=== PATIENT | female | born 1995 | race Caucasian/White ===

== ENCOUNTER 2022-12-17 12:04 | Outpatient (CLI) | payer BC, SELFPAY ==
--- NOTE | 2022-12-17 12:15 | CRLHL7_ITS ---
For Patients: As a result of the Century Cures Act, medical imaging exams and procedure reports are released immediately into your electronic medical record. You may view this report before your referring provider. If you have questions, please contact your health care provider. INDICATION: First trimester scan, establish dates. COMPARISON: None. TECHNIQUE: Real-time campos-scale imaging of the pelvis was performed. FINDINGS: Sonographic imaging demonstrates a single living intrauterine gestation. The embryo demonstrates a regular cardiac rate measuring 166 beats per minute. The embryo`s crown-rump length measurement of 1.7 cm corresponds to a gestational age of 8 weeks 1 day with a sonographic due date of 07/28/2023. There is a normal-appearing yolk sac. Possible 3 millimeter umbilical cord cyst. The gestational sac has a normal appearance. Tiny subchorionic hemorrhage inferiorly measuring 5 x 2 x 8 millimeters. The amount of fluid within the sac appears appropriate for gestational age. The cervix is closed. The myometrium appears normal. Corpus luteal cyst left ovary. Right ovary not visualized. There are no suspicious fluid collections noted in the cul-de-sac. IMPRESSION: Single living intrauterine with sonographic gestational age 8 weeks 1 day and sonographic due date 07/28/2023. Tiny subchorionic hemorrhage inferiorly measuring 5 x 2 x 8 millimeters. Possible 3 millimeter umbilical cord cyst. Short-term follow-up in 2 weeks suggested. Dictated by Ugo Love MD @ 12/17/2022 1:11:17 PM (Electronically Signed)
== END 2022-12-17 12:05 | disposition home or self-care (01) ==
LOC: US 12:06
PROVIDERS: Visit Provider Registered Nurse
DX: Z34.91 Encounter for supervision of normal pregnancy, unspecified, first trimester (principal); Z3A.08 8 weeks gestation of pregnancy
CPT/HCPCS: 76817; 82565; 82570; 84156; 84450; 84460; 84520; 84550; 86592; 86703; 86762; 86787; 86803; 86850; 86900; 86901; 87086; 87340; 87491; 87591

== ENCOUNTER 2022-12-17 13:07 | Outpatient (CLI) | payer BC, SELFPAY ==
[2022-12-17 14:59] LABS: Creatinine* 0.5 mg/dL (0.5-1.5); Estimated Glomerular Filt Rate 133 ml/min
[2022-12-17 15:00] LABS: Alanine Aminotransferase* 16 U/L (4-35); Aspartate Amino Transferase* 16 U/L (12-35); Blood Urea Nitrogen* 10 mg/dL (5-24); Uric Acid* 5.4 mg/dL (2.2-8.4)
[2022-12-17 15:17] LABS: Total Protein Urine < 5 mg/dL
[2022-12-17 15:18] LABS: Creatinine Urine 163.8 mg/dL
[2022-12-17 15:32] LABS: Hepatitis B Surface Antigen* Negative (Negative)
[2022-12-17 15:42] LABS: HIV 1/2/P24 Combo Screen* Negative (Negative)
[2022-12-17 15:50] LABS: Hepatitis C Virus Antibody* Negative (Negative)
[2022-12-17 18:25] LABS: Chlamydia DNA Amplified* NOT DETECTED (No Detected); GC DNA Amplified* NOT DETECTED (No Detected)
[2022-12-20 00:23] LABS: Rubella Antibody IgG 72.2 IU/mL
[2022-12-20 01:38] LABS: Varicella-Zoster Virus Ab, IgG 134.6 IV
[2022-12-20 03:52] LABS: Rapid Plasma Reagin (RPR) Non Reactive (Non Reactive)
== END 2022-12-17 13:08 | disposition home or self-care (01) ==
PROVIDERS: Visit Provider Registered Nurse
DX: Z34.91 Encounter for supervision of normal pregnancy, unspecified, first trimester (principal)
CPT/HCPCS: 82565; 82570; 84156; 84450; 84460; 84520; 84550; 86592; 86703; 86762; 86787; 86803; 86850; 86900; 86901; 87086; 87340; 87491; 87591

== ENCOUNTER 2022-12-31 13:44 | Outpatient (CLI) | payer BC, SELFPAY ==
--- NOTE | 2022-12-31 14:00 | CRLHL7_ITS ---
For Patients: As a result of the Century Cures Act, medical imaging exams and procedure reports are released immediately into your electronic medical record. You may view this report before your referring provider. If you have questions, please contact your health care provider. INDICATION: Followup in umbilical cord cyst. COMPARISON: December 17, 2022. TECHNIQUE: Real-time campos-scale imaging of the pelvis was performed. FINDINGS: Sonographic imaging demonstrates a single living intrauterine gestation. The embryo demonstrates a regular cardiac rate measuring between 188 and 190 beats per minute. The embryo`s crown-rump length measurement of 3.3 cm corresponds to a gestational age of 10 weeks 1 day with a sonographic due date of July 28, 2023. There is a normal-appearing yolk sac. There are no gross abnormalities noted within the embryo at this early state of development. The placenta has not yet developed. The gestational sac has a normal appearance and there is no evidence of a perigestational hemorrhage. The amount of fluid within the sac appears appropriate for gestational age. The cervix is closed. The myometrium appears normal. The ovaries are of normal size. The right ovary measures 3.8 x 2.5 x 2.5 cm and contains a small corpus luteum cyst of . The left ovary measures 4.0 x 1.2 x 2.7 cm. There are no suspicious fluid collections noted in the cul-de-sac. A previously suggested umbilical cord cyst has resolved. IMPRESSION: 1. Resolution of a previously suggested umbilical cord cyst. 2. Elevated heart rate of between 188 and 190 beats per minute. 3. The crown-rump length corresponds to a 10 week 1 day gestation. Dictated by Keenan Nicole MD @ 12/31/2022 3:53:14 PM (Electronically Signed)
== END 2022-12-31 13:45 | disposition home or self-care (01) ==
LOC: US 13:46
PROVIDERS: Visit Provider Registered Nurse
DX: Z34.91 Encounter for supervision of normal pregnancy, unspecified, first trimester (principal); Z3A.10 10 weeks gestation of pregnancy
CPT/HCPCS: 76816

== ENCOUNTER 2023-02-06 11:35 | Outpatient (CLI) | payer BC, SELFPAY ==
[2023-02-06 16:24] LABS: Strep A DNA Probe* NOT DETECTED (Not Detectd)
[2023-02-06 16:36] LABS: SARS PCR* Negative SARS-CoV-2 (Negative)
== END 2023-02-06 11:36 | disposition home or self-care (01) ==
PROVIDERS: Visit Provider Nurse Practitioner Family
DX: J06.9 Acute upper respiratory infection, unspecified (principal); J02.9 Acute pharyngitis, unspecified
CPT/HCPCS: 87635; 87651

== ENCOUNTER 2023-05-06 12:31 | Outpatient (CLI) | payer BC, SELFPAY | END 2023-05-06 12:32 | disposition home or self-care (01) | LOC: NFLDREF 05-08 05:12 | PROVIDERS: Visit Provider Obstetrics & Gynecology | DX: Z34.93 Encounter for supervision of normal pregnancy, unspecified, third trimester (principal); Z3A.28 28 weeks gestation of pregnancy | CPT/HCPCS: 86592 ==

== ENCOUNTER 2023-06-02 12:55 | Outpatient (CLI) | payer BC, SELFPAY ==
--- NOTE | 2023-06-02 13:00 | CRLHL7_ITS ---
For Patients: As a result of the Century Cures Act, medical imaging exams and procedure reports are released immediately into your electronic medical record. You may view this report before your referring provider. If you have questions, please contact your health care provider. INDICATION: BMI TECHNIQUE: Real time campos scale imaging of the fetus was performed. COMPARISON: 03/11/2023 FINDINGS: Sonographic imaging demonstrates a single living intrauterine gestation. Fetus demonstrates a regular cardiac rate of 150 beats per minute. Fetus has a vertex position. The placenta lies anteriorly. Amniotic fluid volume appears normal and there is a single deepest pocket of 5.8 cm. The estimated weight is 2337gm which lies at the 94th %. On the prior OB ultrasound dated 03/11/2023 the estimated weight was at the 92nd percentile. BPD 90th percentile. HC 85th percentile. AC 96th percentile. FL 75th percentile. The fetus was active and demonstrated normal breathing movements. There was normal flexion and extension of the trunk and extremities. IMPRESSION: Normal biophysical profile score 8/8. Sonographic gestational age 34 weeks 1 day and sonographic due date 07/13/2023. Sonographic age 15 days ahead of the clinical age. Estimated weight 94th percentile. Abdominal circumference 96th percentile. Dictated by Ugo Love MD @ 06/02/2023 3:05:19 PM (Electronically Signed)
== END 2023-06-02 12:56 | disposition home or self-care (01) ==
LOC: US 12:56
PROVIDERS: Visit Provider Obstetrics & Gynecology
DX: O36.63X0 Maternal care for excessive fetal growth, third trimester, not applicable or unspecified (principal); Z3A.34 34 weeks gestation of pregnancy
CPT/HCPCS: 76816; 76819

== ENCOUNTER 2023-06-05 13:55 | Outpatient (CLI) | payer BC, SELFPAY ==
--- NOTE | 2023-06-05 14:00 | CRLHL7_ITS ---
For Patients: As a result of the Century Cures Act, medical imaging exams and procedure reports are released immediately into your electronic medical record. You may view this report before your referring provider. If you have questions, please contact your health care provider. INDICATION: OBESITY COMPLICATING COMPARISON: 06/02/2023 TECHNIQUE: Real time campos scale imaging of the fetus was performed. Without non-stress testing. FINDINGS: Sonographic imaging demonstrates a single living intrauterine gestation. Fetus demonstrates a regular cardiac rate of 163 beats per minute. Fetus has a vertex position. The amniotic fluid volume appears normal and there is a single deepest pocket measurement of 5.2 cm. The fetus was active and demonstrated normal breathing movements. There was normal flexion and extension of the trunk and extremities. IMPRESSION: Normal biophysical profile score of 8 out of 8. Dictated by Ugo Love MD @ 06/08/2023 9:00:17 AM (Electronically Signed)
== END 2023-06-05 13:56 | disposition home or self-care (01) ==
LOC: US 13:56
PROVIDERS: Visit Provider Obstetrics & Gynecology
DX: O99.210 Obesity complicating pregnancy, unspecified trimester (principal)
CPT/HCPCS: 76819

== ENCOUNTER 2023-06-16 13:06 | Outpatient (CLI) | payer BC, SELFPAY ==
--- NOTE | 2023-06-16 13:00 | CRLHL7_ITS ---
For Patients: As a result of the Century Cures Act, medical imaging exams and procedure reports are released immediately into your electronic medical record. You may view this report before your referring provider. If you have questions, please contact your health care provider. INDICATION: Obesity COMPARISON: 06/05/2023 TECHNIQUE: Real time campos scale imaging of the fetus was performed. Without non-stress testing. FINDINGS: Sonographic imaging demonstrates a single living intrauterine gestation. Fetus demonstrates a regular cardiac rate of 150 beats per minute. Fetus has a vertex position. The amniotic fluid volume appears lower limits of normal and there is a single deepest pocket measurement of 2.6 cm. MIGUEL 8.3 cm. The fetus was active. Absent breathing movements. There was normal flexion and extension of the trunk and extremities. IMPRESSION: Biophysical profile 04/09. Lower limits of normal amniotic fluid with MIGUEL 8.3 cm. Dictated by Ugo Love MD @ 06/17/2023 11:23:20 AM (Electronically Signed)
== END 2023-06-16 13:07 | disposition home or self-care (01) ==
LOC: US 13:07
PROVIDERS: Visit Provider Obstetrics & Gynecology
DX: Z34.93 Encounter for supervision of normal pregnancy, unspecified, third trimester (principal); Z3A.34 34 weeks gestation of pregnancy
CPT/HCPCS: 76819

== ENCOUNTER 2023-06-19 11:43 | Emergency (ER) | payer BC, SELFPAY ==
[2023-06-19 11:53] VITALS: BP 129/86; PULSE 78; RESP 20; TEMP 36.1; O2SAT 98; BMI 50.4
--- NOTE | 2023-06-19 12:25 | CRLHL7_ITS ---
For Patients: As a result of the Century Cures Act, medical imaging exams and procedure reports are released immediately into your electronic medical record. You may view this report before your referring provider. If you have questions, please contact your health care provider. INDICATION: FOOT SWELLING. . TECHNIQUE: Ultrasound venous duplex lower left extremity. Compression venous exam was performed using campos-scale, color Doppler, and spectral Doppler analysis. COMPARISON: None. FINDINGS: Deep veins: Sonographic imaging demonstrates the left common femoral, deep femoral, superficial femoral, popliteal, posterior tibial and the contralateral right common femoral veins to be fully compressible with normal color Doppler blood flow. Superficial veins: Greater saphenous vein is fully compressible. No popliteal cyst. IMPRESSION: Normal left lower extremity venous ultrasound, no sign of deep venous thrombosis. Dictated by Viktor Juan MD @ 06/19/2023 2:25:19 PM (Electronically Signed)
--- NOTE | 2023-06-19 12:26 | ED_ITS ---
HPI - General Adult General Chief complaint: Lower Extremity Swelling Stated complaint: Feet swelling, suspected blood clot Time Seen by Provider: 06/19/23 12:03 History of Present Illness HPI narrative: This 27-year-old female is in her last trimester at around 34 weeks and comes in reporting bilateral swelling in her feet and hands, left foot greater than the right foot. She does not report any shortness of breath and does not have any leg pain. She does not have a prior history of clots. She does report a mild headache but states that she typically gets headaches. She arrives with normal blood pressure. Related Data Home Medications Medication Instructions Recorded Confirmed prenat.vits,kaleigh,rmm-yyyl-cexze 1 tab PO QDAY 12/17/22 06/16/23 aspirin 81 mg tablet,delayed 81 mg PO QDAY 02/06/23 06/16/23 release magnesium oxide 500 mg capsule 500 mg PO QDAY 02/06/23 06/16/23 cetirizine 10 mg tablet (Zyrtec) 10 mg PO QDAY PRN 02/11/23 06/16/23 Previous Rx's Medication Instructions Recorded sumatriptan succinate 50 mg tablet See Rx Instructions PO .COMPLEX 09/17/22 #10 tabs Allergies Allergy/AdvReac Type Severity Reaction Status Date / Time No Known Drug Allergies Allergy Verified 06/19/23 11:56 Review of Systems Status of ROS: Reports: 10 or more systems reviewed and unremarkable except as noted in History and below Narrative: Constitutional: No fevers. Eyes: No discharge. No vision changes. HENT: No congestion, no sore throat, no ear pain. Cardiovascular: No chest pain, no palpitations. Respiratory: No shortness of breath, no wheezes, no cough. Gastrointestinal: No abdominal pain, no vomiting, no diarrhea. Genitourinary: No dysuria, no hematuria. Musculoskeletal: Normal range of motion. Skin: No rashes, no pruritis. Neurological: No dizziness, weakness, sensory change, speech change. Endo/Heme/Allergies: No bruising or bleeding. No polydipsia. Pysch: no suicidality, no anxiety, no insomnia. All other systems reviewed and are negative. [facility] Medical History (Updated 06/19/23 @ 13:33 by Aaron Mckeon MD) Preeclampsia ?O14.90 - Unspecified pre-eclampsia, unspecified trimester (ICD-10) Asthma ?J45.909 - Unspecified asthma, uncomplicated (ICD-10) Acute recurrent tonsillitis ?J03.91 - Acute recurrent tonsillitis, unspecified (ICD-10) Surgical History (Updated 12/17/22 @ 21:54 by Ann-Marie Doe CNP) Status post primary low transverse section (05/07/21) ?Z98.891 - History of uterine scar from previous surgery (ICD-10) Social History Smoking Status: Former smoker How often do you have a drink containing alcohol: never How often do you have six or more drinks on one occasion: Never AUDIT-C Alcohol total score: 0 Non-prescribed substance use: denies use Little interest or pleasure in doing things: several days Feeling down, depressed, or hopeless: not at all Exam Narrative: Exam Narrative: Constitutional: Well-developed, well-nourished, no acute distress. HEENT: Normocephalic, atraumatic. Neck: Normal range of motion. Nontender. Supple. Heart: Regular. No murmurs. Normal rate. Intact distal pulses. Lungs: Clear to auscultation. No chest discomfort. No wheezes, rhonchi, or rales. Abdomen: Normal bowel sounds. Nontender. No rebound tenderness. Gravid. Genitalia: Deferred. Back: No midline tenderness. Normal range of motion. Extremities: Normal range of motion. No injury. No pitting pedal edema. No tenderness when squeezing on the calf or thigh musculature. Skin: Intact. No rash. Warm. No erythema or pallor. Neurologic: No altered sensation. No weakness. Alert and oriented. Psychiatric: No suicidality. No anxiety or depression. No insomnia. Nursing notes and vitals signs are reviewed. Const: Vital Signs, click to edit/add: Vital Signs - 24 hr 06/19/23 11:53 Temperature 97.0 F L Pulse Rate [Right Pulse Oximeter] 78 Respiratory Rate 20 Blood Pressure [Ri ght Upper Arm] 129/86 Pulse Oximetry 98 Oxygen Delivery Me thod Room Air Course Vital Signs Vital signs: Initial Vital Signs Temperature 97.0 F L 06/19/23 11:53 Temperature Source Temporal Artery Scan 06/19/23 11:53 Pulse Rate 78 06/19/23 11:53 Pulse Rhythm Regular 06/19/23 11:53 Pulse Strength 3+ Normal 06/19/23 11:53 Respiratory Rate 20 06/19/23 11:53 Blood Pressure 129/86 06/19/23 11:53 Blood Pressure Mean 100 06/19/23 11:53 Blood Pressure Position Sitting 06/19/23 11:53 Pulse Oximetry 98 06/19/23 11:53 Oxygen Delivery Method Room Air 06/19/23 11:53 Vital Signs Temperature 97.0 F L 06/19/23 11:53 Pulse Rate 78 06/19/23 11:53 Respiratory Rate 20 06/19/23 11:53 Blood Pressure 129/86 06/19/23 11:53 Pulse Oximetry 98 06/19/23 11:53 Oxygen Delivery Method Room Air 06/19/23 11:53 Temperature 97.0 F L 06/19/23 11:53 Pulse Rate 78 06/19/23 11:53 Respiratory Rate 20 06/19/23 11:53 Blood Pressure 129/86 06/19/23 11:53 Pulse Oximetry 98 06/19/23 11:53 Oxygen Delivery Method Room Air 06/19/23 11:53 Medical Decision Making MDM Narrative Medical decision making narrative: This patient comes in with concern that she might have a blood clot in her left lower extremity. She is in her 3rd trimester and states that she had some extra fluid in her feet recently. An ultrasound of the left lower extremity is completed and shows no evidence of deep venous thrombosis. heart tones are also measured and 147-149 beats per minute. These results are reassuring to the patient who is okay to be discharged home to continue current plans. Discharge Plan Discharge Clinical Impression: Feared condition not demonstrated, Patient Disposition: Home, Self-Care Condition: Stable Additional Instructions: Continue current plans. Follow up with MD or return if worsening. Prescriptions: No Action cetirizine [Zyrtec] 10 mg tablet 10 mg PO QDAY PRN aspirin 81 mg tablet,delayed release (DR/EC) 81 mg PO QDAY magnesium oxide 500 mg capsule 500 mg PO QDAY sumatriptan succinate 50 mg tablet See Rx Instructions PO .COMPLEX Qty: 10 12RF Rx Instructions: take 1 tab at onset of headache; if no relief may repeat 1 tab after at least 2 hrs; max = 4 tabs/24 hr PO prenat.vits,kaleigh,deo-ajlb-amiqm Tablet 1 tab PO QDAY Follow Up/Referrals: Provider,Not a Local [Primary Care Provider] - Stand Alone Forms: [employer] Info Instructions
[2023-06-19 13:46] VITALS: BP 121/65; PULSE 77; TEMP 36.2
== END 2023-06-19 13:47 | disposition home or self-care (01) ==
PROVIDERS: Emergency Provider Emergency Medicine Emergency Medical Services
DX: Z71.1 Person with feared health complaint in whom no diagnosis is made (principal); Z33.1 Pregnant state, incidental
CPT/HCPCS: 93971; 99283; 99284

== ENCOUNTER 2023-06-23 12:46 | Outpatient (CLI) | payer BC, SELFPAY ==
--- NOTE | 2023-06-23 13:00 | CRLHL7_ITS ---
For Patients: As a result of the Cures Act, medical imaging exams and procedure reports are released immediately into your electronic medical record. You may view this report before your referring provider. If you have questions, please contact your health care provider. INDICATION: BMI. COMPARISON: June 16, 2023. TECHNIQUE: Real time campos scale imaging of the fetus was performed without non-stress testing. FINDINGS: Sonographic imaging demonstrates a single living intrauterine gestation. Fetus demonstrates a regular cardiac rate of 125 beats per minute. Fetus has a vertex orientation. The amniotic fluid volume appears normal and there is a single deepest pocket measurement of 6.1 cm. The fetus was active and demonstrated normal breathing movements. There was normal flexion and extension of the trunk and extremities. IMPRESSION: Normal biophysical profile score of 8 out of 8. Dictated by Keenan Nicole MD @ 06/24/2023 9:28:50 PM (Electronically Signed)
== END 2023-06-23 12:47 | disposition home or self-care (01) ==
LOC: US 12:47
PROVIDERS: Visit Provider Obstetrics & Gynecology
DX: Z34.93 Encounter for supervision of normal pregnancy, unspecified, third trimester (principal); Z3A.35 35 weeks gestation of pregnancy
CPT/HCPCS: 76819

== ENCOUNTER 2023-07-01 09:05 | Outpatient (CLI) | payer BC, SELFPAY ==
--- NOTE | 2023-07-01 09:15 | CRLHL7_ITS ---
For Patients: As a result of the Century Cures Act, medical imaging exams and procedure reports are released immediately into your electronic medical record. You may view this report before your referring provider. If you have questions, please contact your health care provider. INDICATION: OBESITY COMPARISON: none TECHNIQUE: Real time campos scale imaging of the fetus was performed. Without non-stress testing. FINDINGS: Sonographic imaging demonstrates a single living intrauterine gestation. Fetus demonstrates a regular cardiac rate of 122 beats per minute. Fetus has a vertex position. The amniotic fluid volume appears lower limits of normal and there is a single deepest pocket measurement of 3.2 cm. MIGUEL 9.5 cm. The fetus was active and demonstrated normal breathing movements. There was normal flexion and extension of the trunk and extremities. IMPRESSION: Normal biophysical profile score of 8 out of 8. Amniotic fluid lower limits of normal with MIGUEL 9.5 cm. Dictated by Ugo Love MD @ 07/01/2023 10:56:43 AM (Electronically Signed)
== END 2023-07-01 09:06 | disposition home or self-care (01) ==
LOC: US 09:06
PROVIDERS: Visit Provider Obstetrics & Gynecology
DX: O99.210 Obesity complicating pregnancy, unspecified trimester (principal); Z68.43 Body mass index [BMI] 50.0-59.9, adult
CPT/HCPCS: 76819; 87081; 87653

== ENCOUNTER 2023-07-07 13:49 | Outpatient (CLI) | payer BC, SELFPAY ==
--- NOTE | 2023-07-07 14:00 | CRLHL7_ITS ---
For Patients: As a result of the Century Cures Act, medical imaging exams and procedure reports are released immediately into your electronic medical record. You may view this report before your referring provider. If you have questions, please contact your health care provider. INDICATION: OBESITY COMPARISON: 07/01/2023 TECHNIQUE: Real time campos scale imaging of the fetus was performed. Without non-stress testing. FINDINGS: Sonographic imaging demonstrates a single living intrauterine gestation. Fetus demonstrates a regular cardiac rate of 146 beats per minute. Fetus has a vertex position. The amniotic fluid volume appears normal and there is a single deepest pocket measurement of 5.5 cm. The fetus was active and demonstrated normal breathing movements. There was normal flexion and extension of the trunk and extremities. IMPRESSION: Normal biophysical profile score of 8 out of 8. Dictated by Ugo Love MD @ 07/07/2023 2:50:43 PM (Electronically Signed)
== END 2023-07-07 13:50 | disposition home or self-care (01) ==
LOC: US 13:50
PROVIDERS: Visit Provider Obstetrics & Gynecology
DX: O99.210 Obesity complicating pregnancy, unspecified trimester (principal)
CPT/HCPCS: 76819

== ENCOUNTER 2023-07-14 13:06 | Outpatient (CLI) | payer BC, SELFPAY ==
--- NOTE | 2023-07-14 13:00 | CRLHL7_ITS ---
For Patients: As a result of the Century Cures Act, medical imaging exams and procedure reports are released immediately into your electronic medical record. You may view this report before your referring provider. If you have questions, please contact your health care provider. INDICATION: Obesity complicating COMPARISON: 07/07/2023 TECHNIQUE: Real time campos scale imaging of the fetus was performed. Without non-stress testing. FINDINGS: Sonographic imaging demonstrates a single living intrauterine gestation. Fetus demonstrates a regular cardiac rate of 155 beats per minute. Fetus has a vertex position. The amniotic fluid volume appears lower limits of normal and there is a single deepest pocket measurement of 4.3 cm. MIGUEL 7.1 cm. The fetus was active and demonstrated normal breathing movements. There was normal flexion and extension of the trunk and extremities. IMPRESSION: Normal biophysical profile score of 8 out of 8. Lower limits normal amniotic fluid with MIGUEL 7.1 cm. Dictated by Ugo Love MD @ 07/15/2023 1:11:54 PM (Electronically Signed)
== END 2023-07-14 13:07 | disposition home or self-care (01) ==
LOC: US 13:06
PROVIDERS: Visit Provider Obstetrics & Gynecology
DX: O99.210 Obesity complicating pregnancy, unspecified trimester (principal); Z68.43 Body mass index [BMI] 50.0-59.9, adult
CPT/HCPCS: 76819

== ENCOUNTER 2023-07-21 05:23 | Inpatient (IN) | payer BC, SELFPAY ==
[2023-07-21] VITALS (20 sets, daily range): BP systolic 78–124; BP diastolic 46–71; PULSE 54–78; RESP 16–18; TEMP 36.3–36.8; O2SAT 95–100; BMI 44.1
[2023-07-21] MEDS: LACTATED RINGERS 1000 ML 1,000 ML 999 ML IV (05:48)
[2023-07-21 05:53] LABS: Hemoglobin* 11.9 gm/dL (12.0-16.0)
[2023-07-21 07:11] LABS: Basophils Percent Auto 0.2 % (0.0-3.0); Eosinophils Percent Auto 1.2 % (0.0-7.0); Hematocrit 35.6 % (33.0-51.0); Hemoglobin* 11.9 gm/dL (12.0-16.0); Immature Granulocytes Pct Auto 1.3 %; Lymphocytes Percent Auto 27.3 % (20-44); Mean Corpuscular HGB Conc 33 gm/dL (32-36); Mean Corpuscular Hemoglobin 28 pg (26-34); Mean Corpuscular Volume 82 fL (80-100); Platelet Count* 362 K/uL (140-440); RDW Coefficient of Variation % 14.2 % (11.5-15.5); Red Blood Count 4.32 m/uL (4.00-5.20); White Blood Count* 12.94 K/uL (4.50-11.00)
[2023-07-21 07:15] LABS: Slide Review Reflex No
[2023-07-21] MEDS: CEFAZOLIN 1 GM inj 3 GM IVP (07:30)
--- NOTE | 2023-07-21 07:58 | W.ANESCHARGE ---
Anesthesia Charges Start Date/Time Anesthesia Start Date: 07/21/23 Anesthesia Start Time: 07:23 Stop Date/Time Anesthesia Stop Date: 07/21/23 Anesthesia Stop Time: 09:17
[2023-07-21] MEDS: OXYTOCIN 30 unit/500 ML in NS 30 UNIT/500 ML BAG 300 UNIT IVPB (08:10)
--- NOTE | 2023-07-21 09:08 | P.OBPRC_ITS ---
Procedure Date of procedure: 07/21/23 Pre-op diagnosis: 39 weeks, h/o priot x1 Post-op diagnosis: same Procedure Done: Global Will [facility] bill your pro fee for this procedure?: Yes Blood Loss Measurement Type: QBL (285 mL) Bakri Used: No Surgeon: Mirta Chaudhry MD Sheet Catcher: Estefany Todd MD Anesthesia type: Spinal Findings: Live-born male infant, cephalic presentation, loose nuchal cord x1, Apgars 8 9 at 1 and 5 minutes respectively, weight 3265 g. Dense adhesions between omentum, anterior peritoneum, and rectus muscles. Otherwise normal-appearing uterus, tubes, and ovaries bilaterally. Procedure Description: After obtaining informed consent, the patient was taken to the operating room where spinal anesthesia was obtained and found to be adequate. She was prepared and draped in the normal sterile fashion in the dorsal supine position with a leftward tilt. A Pfannenstiel skin incision was made with a scalpel along the line of the patient's previous Pfannenstiel scar. This inci jose antonio was carried down to the underlying layer of fascia with the Bovie. The fascia was incised in the midline and the incision extended laterally. The superior and inferior aspects of the fascial incision were grasped with Gail clamps, elevated and the underlying rectus muscles dissected off sharply and with electrocautery. This dissection took an increased amount of time given the dense adhesions. The rectus muscles were then in the midline. The adhesions between the bladder and lower uterine segment were taken down sharply with Metzenbaum scissors. The Gildardo O retractor was then placed into the incision. The lower uterine segment was then incised in a transverse fashion with the scalpel. Upon entry into the uterus, clear amniotic fluid was noted. The uterine incision was extended laterally with blunt finger fractionation. The infant's head was delivered atraumatically, followed by the remainder of the infant's body. The nose and mouth were suctioned with the bulb suction. The cord was doubly clamped and cut, and the infant was handed off the field for evaluation. The placenta was delivered spontaneously with umbilical cord traction and fundal massage. The uterus was cleared of all clots and debris. The uterine incision was reapproximated in a running locking fashion with a 0 chromic suture. A 2nd layer of the same suture was used to imbricate in horizontal fashion. The gutters were irrigated and suctioned. All instruments and retractors were removed. The omental adhesions were serially doubly clamped with Maylin clamps, transected, and ligated with 2-0 Vicryl. The anterior peritoneum was reapproximated in a running fashion with a 3-0 Vicryl suture. The subfascial tissues were carefully inspected and hemostasis assured. The fascia was reapproximated in a running fashion with a looped 0 Maxon suture. The subcutaneous tissues were copiously irrigated. Hemostasis was assured. The subcutaneous fat layer was reapproximated with interrupted sutures of 3-0 plain gut. The skin was closed in a subcuticular fashion with 4-0 Vicryl. A silver Mepilex dressing dressing was applied. At the conclusion of the procedure, a TAP block was administered by anesthesia. The patient tolerated the procedure well. Sponge, lap, needle, and instrument counts were reported as correct x2. The patient was taken to the recovery room, awake, and in stable condition. She did receive 3 grams of IV Ancef preoperatively. Complications: None. Condition: stable Disposition: floor OB Delivery Proc Additional Procedures Tubal Ligation at the time of : No
[2023-07-21] MEDS: LACTATED RINGERS 1000 ML 1,000 ML 125 ML IV (09:30)
--- NOTE | 2023-07-21 09:58 | P.NB_ITS ---
Nerve Block Nerve Block Time Seen by Provider: 09:08 Date Seen: 07/21/23 Type of block requested by surgeon for post-operative analgesia: TAP Side: bilateral Time out performed: Yes Verification of patient name: Yes Verification of date of : Yes Site marking: site marked Name of person performing procedure: Jeovanny Continuous monitoring Was continuous monitoring of O2 sat, B/P, veterans' coordinator, recorded every 15 minutes?: Yes Procedure Checklist: sterile prep, needles and gloves Ultrasound guided. Images saved: Yes Medications given in 5ml increments after negative aspiration: Marcaine %: 0.25 mL: 30 Needle gauge: 20 and Exparel mL: 10 Patient tolerated procedure well: Yes Additional comments: Needle noted adjacent to nerve Block Charges Block Charge (with Pro Fee): TAP Bilateral Use of Ultrasound Machine for Block: Yes- US Guidance/pain block
--- NOTE | 2023-07-21 10:37 | W.ANESCHARGE ---
Anesthesia Charges Start Date/Time Anesthesia Start Date: 07/21/23 Anesthesia Start Time: 07:23 Stop Date/Time Anesthesia Stop Date: 07/21/23 Anesthesia Stop Time: 09:17
[2023-07-21] MEDS: ENOXAPARIN 40 MG/0.4 ML INJ SUBCUT (15:22)
[2023-07-21] MEDS: KETOROLAC 30 MG/ML inj IVP ×2 (15:22→21:17)
[2023-07-22 00:02] VITALS: BP 105/68; PULSE 76; RESP 18; TEMP 36.7
[2023-07-22] MEDS: KETOROLAC 30 MG/ML inj IVP ×3 (03:14→15:16)
[2023-07-22 03:16] VITALS: BP 102/65; PULSE 65; RESP 18; TEMP 36.6
[2023-07-22 07:23] VITALS: BP 102/66; PULSE 68; RESP 16; TEMP 36.6
--- NOTE | 2023-07-22 07:26 | PM.OBPNVD1 ---
OB - PN:Subj Subjective Date Seen: 07/22/23 Narrative: Ayala is a 27 y.o. who was admitted to [facility] for repeat cesearean section. ?She had an uncomplicated .?The patient feels well. ?The pain is well controlled with current medications. ?She has no new complaints. ?She is breast feeding and reports things are going well.? the patient has done well.? Vitals have been stable.? She has remained afebrile.? Has a good appetite, is tolerating a general diet. ?She is voiding without difficulty.? She is passing gas and has not had a bowel movement.? She is ambulating and denies any dizziness.? Has scant amount of rubra lochia. OB - PN: Obj Exam Physical Exam: Vital signs: Temp Pulse Resp BP Pulse Ox O2 Del Method 97.9 F 68 16 102/66 98 Room Air 07/22/23 07:23 07/22/23 07:23 07/22/23 07:23 07/22/23 07:23 07/21/23 19:55 07/22/23 07:23 Narrative: GENERAL APPEARANCE:? normal affect, alert, no distress MOOD:? appropriate CHEST:? clear to auscultation HEART:? regular rate and rhythm ABDOMEN:? soft, non-tender the uterine fundus is at Umbilicus, Midline and is appropriate for the stage of recovery. EXTREMITIES:? normal and no edema INCISION: Silver nitrate dressing in place. Clean, dry, and intact Urinary Catheter Management: Urethral: Cath placed during this visit: yes, but has since been removed by the nurse Reason for continuing: decision to DC catheter Insertion date: 07/21/23 Insertion time: 07:45 Removal date: 07/21/23 Removal time: 20:00 OB - PN: Obj Data Labs Labs: Laboratory Results - last 24 hr 07/22/23 06:26 Hgb 9.0 L OB - PN: A/P Delivery Assessment and Plan (1) care and examination immediately after delivery: Status: Acute (2) Status post section: Status: Acute (3) Lactating mother: Status: Acute (4) Anemia due to acute blood loss: Status: Acute Plan day: 1 Plan: routine care Comments: Post-op Day 1, routine post-operative care. Lactating mother. May see if desired. Anticipate discharge tomorrow or [place].
[2023-07-22 07:32] VITALS: TEMP 36.6
[2023-07-22] MEDS: FERROUS SULFATE 325 MG TABLET PO (07:32)
[2023-07-22] MEDS: DOCUSATE SODIUM 100 MG CAPSULE PO (07:32)
[2023-07-22] MEDS: ACETAMINOPHEN 500 MG TABLET 1000 MG PO ×2 (07:32→13:56)
[2023-07-22] MEDS: ENOXAPARIN 40 MG/0.4 ML INJ SUBCUT (15:16)
[2023-07-22 15:25] VITALS: BP 107/67; PULSE 87; RESP 16; TEMP 36.8
[2023-07-22] MEDS: IBUPROFEN 600 MG TABLET PO (21:50)
[2023-07-22 21:51] VITALS: BP 133/74; PULSE 77; RESP 18; TEMP 36.9; O2SAT 99
[2023-07-23 03:02] VITALS: BP 113/71; PULSE 76; RESP 18; TEMP 37
--- NOTE | 2023-07-23 07:32 | PM.OBDSVD1 ---
DS: Providers Provider Date Seen: 07/23/23 Date of admission: 07/21/23 05:23 Primary care physician: Not a Local Provider Admitting Clinician: Mirta Chaudhry MD Attending Physician on discharge: Lakisha Mccloud CNM with Renny Cordon CNM Date of Discharge: 07/23/23 DS: Diagnosis Discharge Diagnosis (1) care and examination immediately after delivery: Status: Acute (2) Lactating mother: Status: Acute (3) Anemia due to acute blood loss: Status: Acute (4) Status post section: Status: Acute Exam Narrative: Exam Narrative: GENERAL APPEARANCE:? normal affect, alert, no distress MOOD:? appropriate CHEST:? clear to auscultation HEART:? regular rate and rhythm ABDOMEN:? soft, non-tender the uterine fundus is firm 1cm below Umbilicus, Midline and is appropriate for the stage of recovery. EXTREMITIES:? normal and trace edema Incision: Healing well, no surrounding erythema, abnormal induration or discharge Const: Vital Signs, click to edit/add: Vital Signs - 24 hr 07/22/23 15:25 07/22/23 21:51 07/23/23 03:02 Temperature 98.2 F 98.5 F 98.6 F Pulse Rate [Pulse Oximeter] 87 77 76 Respiratory Rate 16 18 18 Blood Pressure [Ri ght Arm] 107/67 133/74 113/71 Pulse Oximetry 99 Oxygen Delivery Me thod Room Air Room Air Documenting provider has reviewed patient's vital signs: yes OB - DS: Summary Hospital Course Hospital Course: Ayala is a 27 year old G 2 P 2 at 39.0 weeks gestation that was admitted to the Center on 07/21/23 for repeat section. She had an uncomplicated delivery. She delivered a viable male infant. She is breast feeding. the patient has done well. The patient feels well.? The pain is well controlled with current medications.? She has no new complaints.? Urinary output is adequate and she is voiding without difficulty.? Has a good appetite, is tolerating a general diet, is passing flatus, and has had a bowel movement.? Has small amount of rubra lochia.? She is ambulating well. She is and reports it is going well.?She is undecided about control at this time. Peripartum Data delivery method: Repeat Section Procedures: Procedures Operation Date: 07/21/23 07:15 Actual Procedure Side Surgeon p Repeat Section Mirta Chaudhry MD complications: none [place] Gender: Male Infant Discharge Plan: Home Status at Discharge Functional status at discharge: independent ambulation Overall status at discharge: patient is progressing back to baseline Time Spent with Patient Time attestation: Total time spent providing and/or coordinating discharge services: Time spent: Less than 30 minutes Discharge Plan Discharge Disposition: Home, Self-Care Date of Admission: 07/21/23 05:23 Attending Provider on Discharge: Lakisha Mccloud Primary Care Provider: Provider,Not a Local Condition: Stable Anticipated Discharge Date/Time: 07/23/23 12:00 Discharge Medications: New docusate sodium 100 mg Capsule 100 mg PO BID PRNQty: 100 0RF Rx Instructions: Take 1 cap 1-2 times a day as needed for constipation ferrous sulfate 325 mg (65 mg iron) Tablet 325 mg PO Q48H Qty: 20 0RF ibuprofen 600 mg Tablet 600 mg PO Q6H PRN (Reason: Pain) Qty: 60 0RF oxycodone 5 mg Tablet 5 - 10 mg PO Q4H PRN (Reason: Pain) Qty: 20 0RF Continued cetirizine [Zyrtec] 10 mg tablet 10 mg PO QDAY PRN magnesium oxide 500 mg capsule 500 mg PO QDAY sumatriptan succinate 50 mg tablet See Rx Instructions PO .COMPLEX Qty: 10 12RF Rx Instructions: take 1 tab at onset of headache; if no relief may repeat 1 tab after at least 2 hrs; max = 4 tabs/24 hr PO prenat.vits,kaleigh,dyv-tstf-vblns Tablet 1 tab PO QDAY Discontinued aspirin 81 mg tablet,delayed release (DR/EC) 81 mg PO QDAY Discharge Orders: Discharge Order (Routine); Ordered 07/23/23 Ordered By: Renny Cordon Patient Education: OB Over the Counter Medication Information, OB /Breast Feeding Additional Instructions: Discharge instructions were reviewed with the patient including signs and symptoms of infection and home going medications Lifting Restrictions: 20 pounds for 6 weeks No not submerge incision under water X 2 weeks? Nothing vaginally for 6 weeks: no tampons or intercourse Do not drive while taking narcotic pain medication(s) Off Work or School for 8 weeks 2-week visit: incision check, discuss infant feeding concerns, review control options and screen for anxiety/depression. 6-week visit for an annual exam. consultation services are available to all mothers and babies for the first year after delivery.? To make an appointment, please call [phone]. Activity Level: Activity as Tolerated Discharge Diet: Regular Follow Up Appointments: [facility] [Provider Group] Provider,Not a Local [Primary Care Provider] - Forms: [employer] Info Instructions
[2023-07-23 07:45] VITALS: BP 111/76; PULSE 84; RESP 16; TEMP 36.6; O2SAT 100
[2023-07-23] MEDS: DOCUSATE SODIUM 100 MG CAPSULE PO (07:52)
[2023-07-23] MEDS: IBUPROFEN 600 MG TABLET PO (07:52)
--- NOTE | 2023-08-17 08:51 | P.LDBA_ITS ---
Subjective History of Present Illness Date Seen: 07/21/23 Narrative: Patient is being admitted to Labor and Delivery for elective repeat section. She is a 27 year old at 39 weeks gestation. Her full history and physical was dictated by Dr. Johnson on 07/21/2023. Please see this for details. Specific Issues/Plans : [place]. Son: Rene. Baby: [place] Gender 1. BMI 51.2. * hgb A1c 5.3 * Nutrition referral placed * Anesthesia referral * Level 2 u/s: Dr. Munroe 03/11/23: Normal anatomy, agree with repeat growth at 32 weeks as well as planned weekly monitoring closer to term. Difficult exam due to patients body habitus. MPP 03/23/23: Recommendations: Delivery at 39 weeks, growth ultrasound between 32-36 weeks due to BMI greater than 40. Weekly BPP/NST starting at 32 weeks. * echo ordered 03/11/23: MPP on 03/23/23: Normal * Early GDM testing 16-20 weeks: 128 03/11/23 * Repeat at 28 weeks: 117 (normal) * Weekly BPP and/or NST starting at 32 weeks * Growth US 32 weeks: Cephalic, MVP 5.8 cm, BPP 8/8, EFW 94%, AC 96%. 2. History of preeclampsia. * Baseline preeclampsia labs drawn all normal. BUN 10 Creatinine 0.5 ALT 16 ALT 16 PC ratio 0.00 * Recommended daily baby aspirin starting at 12 weeks: taking 02/11/23 3. History of delivery. Decided for repeat section 03/11/23 * for non-reassuring status (prolonged decel followed by repetitive lates) * Chance of successful : 29% * [place] consent given to the patient and reviewed on 01/15/2023 * USN for EFW will already be done due to elevated BMI. 4. Genetic screening options reviewed. * [id number] 01/15/2023: Negative 5. Will need a Pap smear. 6. History of BA COVID: vaccinated, not boosted. Flu: completed fall 2021 TDAP: 05/21/23 OB - Problem Based A/P Additional Plan (1) History of section: Status: Acute Delivery/Labor/Induction Plan Plan: Section OB Exam Physical Exam Vital signs: Temp Pulse Resp BP Pulse Ox O2 Del Method 97.8 F 84 16 111/76 100 Room Air 07/23/23 07:45 07/23/23 07:45 07/23/23 07:45 07/23/23 07:45 07/23/23 07:45 07/23/23 07:45 Detailed Labor and Delivery Exam Patient Gravid: Yes Fetus (Single) Amniotic Membrane Status: intact
== END 2023-07-23 12:11 | disposition home or self-care (01) | DRG 540 ==
PROVIDERS: Admitting Provider Obstetrics & Gynecology; Visit Provider Obstetrics & Gynecology
PROC: 10D00Z1 Extraction of Products of Conception, Low, Open Approach (ICD-10-PCS; CPT 59514; principal; 2023-07-21 07:15)
DX: O34.211 Maternal care for low transverse scar from previous cesarean delivery (principal); O99.214 Obesity complicating childbirth; E66.9 Obesity, unspecified; O90.81 Anemia of the puerperium; D62 Acute posthemorrhagic anemia; Z37.0 Single live birth; Z3A.39 39 weeks gestation of pregnancy; G89.18 Other acute postprocedural pain
CPT/HCPCS: 01961; 36415; 64488; 76942; 85018; 85025; 86850; 86900; 86901; A9270; C9290; J0665; J0690; J1650; J1885; J2274; J2371; J2590; J7120

== ENCOUNTER 2023-08-07 09:25 | Outpatient (CLI) | payer BC, SELFPAY ==
--- NOTE | 2023-08-07 17:00 | W.PM.LAC.MC ---
Consult Note - Mom Date of Visit Date of visit: 08/07/23 provider contracting consultant: Karly Sommers Visit Code: Visit Patient's Information Phone number: [phone] : 2 Para: 2 Allergies No Known Drug Allergies Allergy (Verified 08/03/23 09:50) Mother's Medical History: Medical History (Updated 08/03/23 @ 18:40 by Mirta Chaudhry MD) Obesity affecting ?O99.210 - Obesity complicating , unspecified trimester (ICD-10) Preeclampsia ?O14.90 - Unspecified pre-eclampsia, unspecified trimester (ICD-10) Work Plans: Returns to work in September at a [employer] center Delivery Information Delivery type: Repeat Section Weeks Gestation: 39.0 Gestational Age: AGA Weight: 3.265 kg Discharge Weight: 2.97 kg Baby's Information Baby's Age at Visit: 17 days Baby's Provider or Clinic: Dr. Jamison Jaundice: No Reason for Consult Reason for Consult: difficulty getting baby to latch Past Experience Past Experience: No Current Frequency of Day Feedings: about every three hours Frequency of Night Feedings: about every two hours Both Breasts: No (mom hasn't really nursed since D/C) Pumping Pumping: Yes (with every feeding) Quantity Pumped: 5 - 8 oz total Supplementing EMB Supplement: Yes (baby takes about 3 oz with every feeding) Formula Supplement: No (not since D/C) Baby Elimination Number of Wet Diapers a Day: 8 - 10 Number of BM a Day: 6 - 8, yellow and seedy Breast/Nipple Condition Breast Information: WNL Maternal Nipple Condition - Left: Common Nipple Maternal Nipple Condition - Right: Common Nipple Onsite Pre-Feed weight: 3.484 kg Post-Feed weight: 3.52 kg Milk Transferred (mL): 36 Assessments/Interventions Assessments/Interventions: Met with mom and this now 17 day old ex- term AGA baby for consult. Mom reports he was nursing well after delivery, but he had a 9% weight loss while in the hospital so mom started pumping and giving her colostrum along with some formula by bottle. Mom tried to go back to nursing when they were back at home, but baby refused so she's been pumping and bottle feeding EBM. She reports baby eats every 2 - 3 hours taking 2.5 - 3 oz each time. She and dad are familiar with paced feeding and try to do that with baby. Mom pumps with every feeding and gets about 8 oz total with her morning session and 5 - 6 total the rest of the day. States she's not sure she wants to exclusively nurse, but would like it if she had the option to nurse. Breasts WNL- symmetrical with rounded lower quadrants, intramammary distance < 1.5 inches. Nipples are everted and don't flatten or retract on compression, no damage noted. Baby has gained 32 grams/day since his last visit on 07/24. Per mom there was no caput/cephalohematoma at delivery. She reports baby has equal ROM when turning his head and moving his extremities. His upper frenulum is tight as it's difficult to flange and the gums shona. He palate is a little arched. He has a fairly strong suck on a finger and the tongue extends past the gum line consistently. There's some canoeing when the tongue lateralizes to the right, but not when going left. His lower frenulum wasn't visualized, posterior? Mom latched baby to the right and the latch was shallow. When she was verbally coached to support her breast in the C shape, point her nipple to his nose, and bring him to her quickly when he opened wide, baby was able to latch on more deeply and mom was comfortable. Baby nursed 10 - 15 minutes and swallowing was heard. Mom offered the left side and he had a little more difficulty but after a few tries had a deep latch and nursed for about 10 minutes. Again mom was comfortable and swallowing was heard. Baby transferred 36 ml. Mom was measured and a smaller flange size was suggested, handout given. Plan: 1. Put baby to breast as often as desired, could consider nursing with daytime feedings and just bottle feed at night. 2. Baby will still need supplementation after nursing sessions, but could probably reduce it to 2 oz/feeding. This can obviously be adjusted as he grows or hopefully begins to take more from the breast. 3. Suggested if she does incorporate more nursing sessions into her day, she could reduce the number of times she pumps but not to go less than 6/24 hours. If she decides not to breastfeed more often to keep her current schedule. 4. Offered list of pediatric dentists to evaluate for posterior tie, but she declined. Encouraged her to call if she changed her mind or had other questions/concerns. 5. Encouraged her to come to [facility] or [facility] and flyers given. Meds Home Medications and Allergies Home Medications Medication Instructions Recorded Confirmed Type cetirizine 10 mg tablet (Zyrtec) 10 mg PO QDAY PRN 02/11/23 08/03/23 History Allergies Allergy/AdvReac Type Severity Reaction Status Date / Time No Known Drug Allergies Allergy Verified 08/03/23 09:50
== END 2023-08-07 09:26 | disposition home or self-care (01) ==
PROVIDERS: Visit Provider Obstetrics & Gynecology
DX: Z39.1 Encounter for care and examination of lactating mother (principal)
CPT/HCPCS: 99211

== ENCOUNTER 2024-10-04 16:02 | Outpatient (CLI) | payer BC, SELFPAY | END 2024-10-04 16:03 | disposition home or self-care (01) | LOC: NFLDREF 16:03 | PROVIDERS: Visit Provider Registered Nurse | DX: Z13.6 Encounter for screening for cardiovascular disorders (principal) | CPT/HCPCS: 80061 ==